=== PATIENT | female | born 1925 | race Caucasian/White ===

== ENCOUNTER 2017-02-05 02:50 | Emergency (ER) | payer MEDICARE, OTHER ==
[~2017-02-05] VITALS: Ht 167.6 cm; Wt 72.7 kg
[2017-02-05] MEDS ORDERED: SERT50TA12 PO (03:16)
[2017-02-05] MEDS ORDERED: POLY15DR57 OU (03:16)
[2017-02-05] MEDS ORDERED: METF500T4 PO (03:16)
[2017-02-05] MEDS ORDERED: PROMDM5L PO (03:16)
[2017-02-05] MEDS ORDERED: FAMO20 PO (03:16)
[2017-02-05] MEDS ORDERED: LEVO100 PO (03:16)
[2017-02-05] MEDS ORDERED: MONT10TA21 PO (03:16)
[2017-02-05] MEDS ORDERED: LORA1TAB3 PO (03:16)
[2017-02-05] MEDS ORDERED: FLUT16H NASAL (03:16)
[2017-02-05] MEDS ORDERED: OLAN5TAB2 PO (03:16)
[2017-02-05 04:22] LABS: GLUCOSE,POINT OF CARE 128 MG/DL (70-110)
[2017-02-05] MEDS: BACITRACIN 0.9 GM PACKET OINTMENT TP ONE (05:52)
[2017-02-05 08:55] VITALS: BP 110/59
== END 2017-02-05 10:55 | disposition home or self-care (01) ==
LOC: EMS 02:52
DX: S80.01XA Contusion of right knee, initial encounter (principal); F03.90 Unspecified dementia, unspecified severity, without behavioral disturbance, psychotic disturbance, mood disturbance, and anxiety; E11.9 Type 2 diabetes mellitus without complications; E03.9 Hypothyroidism, unspecified; W18.39XA Other fall on same level, initial encounter; Y93.89 Activity, other specified; Y92.89 Other specified places as the place of occurrence of the external cause; Y99.8 Other external cause status
CPT/HCPCS: 82962; 99284

== ENCOUNTER 2017-02-09 17:25 | Inpatient (IN) | payer MEDICARE, OTHER ==
[~2017-02-09] VITALS: Ht 152.4 cm; Wt 65.7 kg
[~2017-02-09 17:25] MED LIST: FAMO20 PO; FLUT16H NASAL; LEVO100 PO; LORA1TAB3 PO; METF500T4 PO; MONT10TA21 PO; OLAN5TAB2 PO; POLY15DR57 OU; PROMDM5L PO; SERT50TA12 PO
[2017-02-09 17:42] LABS: GLUCOSE,POINT OF CARE 91 MG/DL (70-110)
[2017-02-09] MEDS ORDERED: SODIUM CHLORIDE 0.9% 1,000 ML IV ONE ×2 (18:30→21:45)
[2017-02-09] MEDS ORDERED: ACETAMINOPHEN 500 MG TABLET PO ONE (18:30)
[2017-02-09 18:48] LABS: BASOPHILS % (AUTO) 0.9 % (0.0-2.0); EOSINOPHILS % (AUTO) 3.4 % (1.0-6.0); HEMATOCRIT 39.6 % (36-46); LYMPHOCYTES # (AUTO) 2.5 K/uL (1.0-4.8); LYMPHOCYTES % (AUTO) 19.2 % (22.0-44.0); MEAN CORPUSCULAR HEMOGLOBIN 31.6 pg (26.0-34.0); MEAN CORPUSCULAR VOLUME 96 fL (80-100); MONOCYTES # (AUTO) 0.8 K/uL (0.1-1.0); MONOCYTES % (AUTO) 6.5 % (2.0-9.0); NEUTROPHILS # (AUTO) 9.1 K/uL (1.8-7.7); PLATELET COUNT (AUTO) 260 K/uL (150-450); RED BLOOD CELL COUNT(AUTO) 4.13 MIL/uL (4.00-5.20); RED CELL DISTRIBUTION WIDTH 15.7 % (11.5-14.5)
[2017-02-09 19:08] LABS: TROPONIN I 0.08 ng/mL (0.00-0.05)
[2017-02-09 19:09] LABS: LACTIC ACID 1.1 mmol/L (0.4-2.0)
[2017-02-09 19:18] LABS: AMMONIA < 10 umol/L (11-32)
[2017-02-09 19:26] LABS: ALBUMIN 3.2 g/dL (3.4-5.0); BILIRUBIN,TOTAL 0.8 mg/dL (0.1-1.0); CALCIUM, TOTAL 8.4 mg/dL (8.8-10.5); CREATININE 1.05 mg/dL (0.60-1.30); TOTAL PROTEIN, SERUM 6.9 g/dL (6.4-8.2)
[2017-02-09 19:28] LABS: POTASSIUM 2.8 mmol/L (3.5-5.1)
[2017-02-09] MEDS ORDERED: ASPIRIN 325 MG TABLET PO ONE (19:30)
[2017-02-09] MEDS ORDERED: POTASSIUM CHL 20 MEQ/D5-0.45NS 1,000 ML IV ONE (19:30)
[2017-02-09] MEDS ORDERED: POTASSIUM CHL 10 MEQ/WATER 50 ML IV ONE (19:30)
[2017-02-09] MEDS ORDERED: POTASSIUM CHLORIDE 10% 40 MEQ/30 ML LIQUID UDCUP PO ONE (19:30)
[2017-02-09] MEDS ORDERED: MAGNESIUM HYDROXIDE SUSPENSION 30 ML UDCUP PO PRN (21:30)
[2017-02-09] MEDS ORDERED: BISACODYL 10 MG RECTAL RECTAL SUPPOSITORY PR PRN (21:30)
[2017-02-09] MEDS ORDERED: ACETAMINOPHEN 325 MG TABLET PO PRN (21:30)
[2017-02-09] MEDS ORDERED: ONDANSETRON HCL 4 MG/2 ML VIAL IVP PRN (21:30)
[2017-02-09] MEDS ORDERED: IPRATROPIUM BROMIDE 0.5 MG/2.5 ML NEB SOLUTION NEB PRN (21:30)
[2017-02-09] MEDS ORDERED: DOCUSATE SODIUM 100 MG CAPSULE PO PRN (21:30)
[2017-02-09] MEDS ORDERED: ALBUTEROL SULFATE 2.5 MG/0.5 ML NEB SOLUTION NEB PRN (21:30)
[2017-02-09 21:44] LABS: APPEARANCE,URINE CLEAR (CLEAR); GLUCOSE, URINE (UA) NEGATIVE (NEGATIVE); KETONES,URINE TRACE mg/dL (NEGATIVE); LEUKOCYTE ESTERASE ,URINE MODERATE (NEGATIVE); OCCULT BLOOD,URINE SMALL (NEGATIVE); PROTEIN,URINE TRACE (NEGATIVE)
[2017-02-09] MEDS: HEPARIN SODIUM,PORCINE 5,000 UNITS/ML VIAL SQ SCH (21:44)
[2017-02-09] MEDS: FAMOTIDINE 10 MG/ML 2 ML VIAL IVP SCH (21:44)
[2017-02-09] MEDS ORDERED: DEXTROSE 50%-WATER 25 GM/50 ML SYRINGE IVP PRN (21:45)
[2017-02-09] MEDS ORDERED: INSULIN ASPART 100 UNITS/ML SQ PRN (21:45)
[2017-02-09 22:14] LABS: SQUAMOUS EPITHELIAL CELL,UR Moderate /LPF (None Seen); WBC,URINE 51-100 /HPF (0-5)
[2017-02-09 22:25] VITALS: BP 114/78
[2017-02-09 23:53] VITALS: BP 125/85
[2017-02-10 04:02] VITALS: BP 113/76
[2017-02-10 06:20] LABS: EOSINOPHILS % (AUTO) 6.5 % (1.0-6.0); HEMATOCRIT 36.6 % (36-46); HEMOGLOBIN 11.9 g/dL (12.0-16.0); LYMPHOCYTES # (AUTO) 2.4 K/uL (1.0-4.8); LYMPHOCYTES % (AUTO) 26.1 % (22.0-44.0); MEAN CORPUSCULAR HEMOGLOBIN 32.1 pg (26.0-34.0); MEAN CORPUSCULAR HGB CONC 32.6 G/dL (31.0-37.0); MEAN CORPUSCULAR VOLUME 98 fL (80-100); MONOCYTES # (AUTO) 0.6 K/uL (0.1-1.0); MONOCYTES % (AUTO) 6.1 % (2.0-9.0); NEUTROPHILS # (AUTO) 5.4 K/uL (1.8-7.7); NEUTROPHILS % (AUTO) 60.3 % (40.0-70.0); PLATELET COUNT (AUTO) 238 K/uL (150-450); RED BLOOD CELL COUNT(AUTO) 3.72 MIL/uL (4.00-5.20); RED CELL DISTRIBUTION WIDTH 15.2 % (11.5-14.5)
[2017-02-10 07:37] LABS: ALBUMIN 2.7 g/dL (3.4-5.0); BILIRUBIN,TOTAL 0.4 mg/dL (0.1-1.0); CALCIUM, TOTAL 7.3 mg/dL (8.8-10.5); CHOL/HDL RATIO 5.4 (3.9-5.7); CREATININE 0.94 mg/dL (0.60-1.30); MAGNESIUM 1.7 mg/dL (1.80-2.40); PHOSPHORUS 1.7 mg/dL (2.5-4.9); POTASSIUM 3.9 mmol/L (3.5-5.1); THYROID STIMULATING HORMONE 34.74 uIU/mL (0.36-3.74); TOTAL PROTEIN, SERUM 6.1 g/dL (6.4-8.2)
[2017-02-10 07:52] VITALS: BP 138/71
[2017-02-10] MEDS: LEVOTHYROXINE SODIUM 100 MCG TABLET PO SCH (09:27)
[2017-02-10] MEDS: SERTRALINE HCL 50 MG TABLET PO SCH (09:27)
[2017-02-10] MEDS: MONTELUKAST SODIUM 10 MG TABLET PO SCH (09:27)
[2017-02-10] MEDS: DEXTRAN 70 0.1%/HYPROMELL 0.3% 0.9 ML OPHTHALMIC SOLUTION [PF] OU SCH (09:27)
[2017-02-10] MEDS: FLUTICASONE PROPIONATE 50 MCG/SPRAY 16 GM NASAL SPRAY NASAL SCH ×2 (09:28→20:59)
[2017-02-10] MEDS: HEPARIN SODIUM,PORCINE 5,000 UNITS/ML VIAL SQ SCH ×2 (09:28→21:00)
[2017-02-10] MEDS: ASPIRIN 81 MG CHEWABLE TABLET PO SCH (09:28)
[2017-02-10 10:37] LABS: GLUCOSE,POINT OF CARE 106 MG/DL (70-110)
[2017-02-10 11:11] VITALS: BP 104/69
[2017-02-10] MEDS: FAMOTIDINE 10 MG/ML 2 ML VIAL IVP SCH ×2 (12:52→21:00)
[2017-02-10] MEDS ORDERED: MAGNESIUM SULFATE 2 GM in DEXTROSE 5%-WATER 50 ML IV ONE (13:15)
[2017-02-10 15:09] VITALS: BP 111/48
[2017-02-10] MEDS ORDERED: POTASSIUM PHOS,M-BASIC-D-BASIC 20 MEQ in DEXTROSE 5%-WATER 100 ML IV ONE (17:00)
[2017-02-10 19:23] VITALS: BP 124/69
[2017-02-10] MEDS: OLANZapine 5 MG TABLET PO SCH (20:59)
[2017-02-10 23:35] VITALS: BP 134/79
[2017-02-11 05:00] VITALS: BP 126/83
[2017-02-11 07:38] VITALS: BP 137/75
[2017-02-11] MEDS: MONTELUKAST SODIUM 10 MG TABLET PO SCH (09:09)
[2017-02-11] MEDS: LEVOTHYROXINE SODIUM 100 MCG TABLET PO SCH (09:09)
[2017-02-11] MEDS: ASPIRIN 81 MG CHEWABLE TABLET PO SCH (09:09)
[2017-02-11] MEDS: FLUTICASONE PROPIONATE 50 MCG/SPRAY 16 GM NASAL SPRAY NASAL SCH ×2 (09:12→20:15)
[2017-02-11] MEDS: SERTRALINE HCL 50 MG TABLET PO SCH (09:12)
[2017-02-11] MEDS: FAMOTIDINE 10 MG/ML 2 ML VIAL IVP SCH ×2 (09:12→20:22)
[2017-02-11] MEDS: MULTIVITAMINS WITH MINERALS, THERAPEUTIC TABLET PO SCH (09:12)
[2017-02-11] MEDS: DEXTRAN 70 0.1%/HYPROMELL 0.3% 0.9 ML OPHTHALMIC SOLUTION [PF] OU SCH (09:12)
[2017-02-11] MEDS: HEPARIN SODIUM,PORCINE 5,000 UNITS/ML VIAL SQ SCH ×2 (09:12→20:14)
[2017-02-11 09:37] LABS: GLUCOSE,POINT OF CARE 163 MG/DL (70-110)
[2017-02-11 09:37] LABS: GLUCOSE,POINT OF CARE 124 MG/DL (70-110)
[2017-02-11 10:57] VITALS: BP 143/75
[2017-02-11 15:20] VITALS: BP 111/58
[2017-02-11 19:35] VITALS: BP 128/59
[2017-02-11] MEDS: OLANZapine 5 MG TABLET PO SCH (20:22)
[2017-02-11 23:38] VITALS: BP 128/52
[2017-02-12 04:06] VITALS: BP 126/63
[2017-02-12 06:51] LABS: BASOPHILS # (AUTO) 0.06 K/uL (0.00-0.20); BASOPHILS % (AUTO) 0.8 % (0.0-2.0); EOSINOPHILS # (AUTO) 0.76 K/uL (0.00-0.70); HEMATOCRIT 34.6 % (36-46); HEMOGLOBIN 11.2 g/dL (12.0-16.0); LYMPHOCYTES # (AUTO) 2.3 K/uL (1.0-4.8); LYMPHOCYTES % (AUTO) 27.6 % (22.0-44.0); MEAN CORPUSCULAR HEMOGLOBIN 31.6 pg (26.0-34.0); MEAN CORPUSCULAR HGB CONC 32.2 G/dL (31.0-37.0); MEAN CORPUSCULAR VOLUME 98 fL (80-100); MONOCYTES # (AUTO) 0.5 K/uL (0.1-1.0); MONOCYTES % (AUTO) 5.7 % (2.0-9.0); NEUTROPHILS # (AUTO) 4.7 K/uL (1.8-7.7); NEUTROPHILS % (AUTO) 56.6 % (40.0-70.0); PLATELET COUNT (AUTO) 189 K/uL (150-450); RED BLOOD CELL COUNT(AUTO) 3.53 MIL/uL (4.00-5.20); RED CELL DISTRIBUTION WIDTH 15.8 % (11.5-14.5); WHITE BLOOD COUNT (AUTO) 8.2 K/uL (4.5-11.0)
[2017-02-12 07:06] LABS: ALBUMIN 2.4 g/dL (3.4-5.0); BILIRUBIN,TOTAL 0.2 mg/dL (0.1-1.0); CALCIUM, TOTAL 7.8 mg/dL (8.8-10.5); POTASSIUM 4.2 mmol/L (3.5-5.1); TOTAL PROTEIN, SERUM 5.6 g/dL (6.4-8.2)
[2017-02-12 07:23] VITALS: BP 117/58
[2017-02-12] MEDS: MONTELUKAST SODIUM 10 MG TABLET PO SCH (07:54)
[2017-02-12] MEDS: LEVOTHYROXINE SODIUM 100 MCG TABLET PO SCH (07:54)
[2017-02-12] MEDS: MULTIVITAMINS WITH MINERALS, THERAPEUTIC TABLET PO SCH (07:54)
[2017-02-12] MEDS: ASPIRIN 81 MG CHEWABLE TABLET PO SCH (07:55)
[2017-02-12] MEDS: FLUTICASONE PROPIONATE 50 MCG/SPRAY 16 GM NASAL SPRAY NASAL SCH (07:55)
[2017-02-12] MEDS: FAMOTIDINE 10 MG/ML 2 ML VIAL IVP SCH (07:55)
[2017-02-12] MEDS: HEPARIN SODIUM,PORCINE 5,000 UNITS/ML VIAL SQ SCH (07:55)
[2017-02-12] MEDS: SERTRALINE HCL 50 MG TABLET PO SCH (07:55)
[2017-02-12] MEDS: DEXTRAN 70 0.1%/HYPROMELL 0.3% 0.9 ML OPHTHALMIC SOLUTION [PF] OU SCH (07:56)
[2017-02-12 11:24] VITALS: BP 121/65
[2017-02-12 12:17] LABS: GLUCOSE COMMENT 1 Received Meds; GLUCOSE,POINT OF CARE 107 MG/DL (70-110)
[2017-02-12 15:09] VITALS: BP 111/51
[2017-02-12 17:56] LABS: GLUCOSE,POINT OF CARE 101 MG/DL (70-110)
[2017-02-12] MEDS ORDERED: SULFAMETHOX/TRIMETH DS 800-160 MG/TABLET PO SCH ×2 (21:00)
== END 2017-02-12 17:52 | DRG 640 ==
LOC: EMS 17:27 → 5S 21:52 → 5N 02-12 06:27
PROVIDERS: ADMIT Internal Medicine; ATTEND Internal Medicine
DX: E87.6 Hypokalemia (principal); E43 Unspecified severe protein-calorie malnutrition; I20.0 Unstable angina; R65.10 Systemic inflammatory response syndrome (SIRS) of non-infectious origin without acute organ dysfunction; J43.9 Emphysema, unspecified; E03.9 Hypothyroidism, unspecified; R74.8 Abnormal levels of other serum enzymes; F03.90 Unspecified dementia, unspecified severity, without behavioral disturbance, psychotic disturbance, mood disturbance, and anxiety; E11.9 Type 2 diabetes mellitus without complications; E86.0 Dehydration; F31.9 Bipolar disorder, unspecified; Z79.82 Long term (current) use of aspirin; F41.9 Anxiety disorder, unspecified; Z68.28 Body mass index [BMI] 28.0-28.9, adult
CPT/HCPCS: 51701; 51702; 70450; 82607; 82746; 82962; 83605; 83735; 84100; 84439; 84443; 87040; 87086; 92610; 93005; 93306; 96361; 96365; 96367; 97162; 97166; 97530; 99285; J1644; J3475; J3480; J3490; J7030; J7060